=== PATIENT | female | born 1980 | race Two or more races ===

== ENCOUNTER 2017-07-02 18:11 | Emergency (ER) | payer SELFPAY ==
[~2017-07-02] VITALS: Ht 175.3 cm; Wt 63.5 kg
[2017-07-02] VITALS (10 sets, daily range): BP systolic 106–142; BP diastolic 58–92
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
[~2017-07-02 18:11] MED LIST: NKM; UNOBMED
[2017-07-02] MEDS ORDERED: LORazepam Inj 2mg/ml 1ml IV ONE ×2 (18:15)
[2017-07-02] MEDS ORDERED: Haloperidol 5mg/ml Inj IM ONE (21:30)
[2017-07-03 01:00] VITALS: BP 139/78
[2017-07-03 01:13] VITALS: BP 139/78
--- NOTE | 2017-07-03 09:31 | Diagnostic Imaging Report ---
Indications: Altered mental status Technique: Spiral acquisitions obtained through the brain. Angled axial and coronal 5 x 5 mm slices were reconstructed. Total dose length product 1362 mGycm. CTDI vol(s) 70 mGy. Dose reduction achieved using automated exposure control Comparison: None Findings: No acute hemorrhage or edema. No mass effect or midline shift. Normal clayton-white differentiation. Normal size ventricles and extra axial CSF spaces. Intact calvarium. Visualized orbits and sinuses are unremarkable. Impression: Negative This agrees with the preliminary interpretation provided overnight by [facility]. The CT scanner at [facility] is accredited by the [employer] and the scans are performed using protocols designed to limit radiation exposure to as low as reasonably achievable to attain images of sufficient resolution adequate for diagnostic evaluation.
--- NOTE | 2017-07-03 09:31 | Diagnostic Imaging Report ---
Indications: Altered mental status Technique: Spiral acquisitions obtained through the brain. Angled axial and coronal 5 x 5 mm slices were reconstructed. Total dose length product 1362 mGycm. CTDI vol(s) 70 mGy. Dose reduction achieved using automated exposure control Comparison: None Findings: No acute hemorrhage or edema. No mass effect or midline shift. Normal clayton-white differentiation. Normal size ventricles and extra axial CSF spaces. Intact calvarium. Visualized orbits and sinuses are unremarkable. Impression: Negative This agrees with the preliminary interpretation provided overnight by [facility]. The CT scanner at [facility] is accredited by the [employer] and the scans are performed using protocols designed to limit radiation exposure to as low as reasonably achievable to attain images of sufficient resolution adequate for diagnostic evaluation.
== END 2017-07-03 01:15 | disposition home or self-care (01) ==
LOC: EDBD 18:11 → EMR 19:07
DX: F10.129 Alcohol abuse with intoxication, unspecified (principal); R41.82 Altered mental status, unspecified
CPT/HCPCS: 36415; 70450; 96372; 96374; 99284; G0480; J1630; 80329